=== PATIENT | female | born 1990 | race Hispanic/Latino ===

== ENCOUNTER 2021-05-21 20:10 | Emergency (ER) | payer MEDICAID, SELFPAY ==
--- NOTE | ~2021-05-21 | US_ITS ---
EXAMINATION: US OB <= 14 weeks fetus EXAM DATE: 05/21/2021 22:41 INDICATION: Pelvic pain, vaginal bleeding. 1st trimester. TECHNIQUE: Pelvic obstetrical transabdominal sonogram was performed by a technologist. There are mu ltiple grayscale and Doppler images available for interpretation. There are no earlier studies of th is gestation for comparison. FINDINGS: Uterus measures 11.3 x 8.5 x 10.0 cm. There is intrauterine gestation sac. pole wit h heart rate confirmed at 165 beats per minute. The 3.4 cm crown-rump length corresponds to estimate d gestational age by ultrasound of 10 weeks 2 days, estimated date of confinement 12/15. Yolk sac is identified. There is small subchorionic hypoechoic region probably hemorrhage measuring [address] by 4 mm in thickness. Left ovary probably has the corpus luteal cyst. Right ovary not identified . IMPRESSION: Live intrauterine gestation with small subchorionic hematoma. Reviewed, dictated and finalized at location A.
[2021-05-21 20:23] VITALS: BP 109/70; PULSE 81; RESP 20; TEMP 36.8; O2SAT 100
[2021-05-21 21:25] LABS: Basophils Percent Auto 0.2 % (0.2-1.2); Eosinophils Absolute Auto 0.1 K/mm3 (0-0.3); Eosinophils Percent Auto 0.7 % (0-4.4); Hematocrit 33.6 % (37.0-47.0); Immature Granulocyte Absolute 0.02 K/mm3 (0.00-0.031); Immature Granulocyte Percent A 0.2 % (0-0.5); Lymphocytes Absolute Auto 2.24 K/mm3 (0.9-3.2); Lymphocytes Percent Auto 24.5 % (18.3-44.2); Mean Corpuscular HGB Conc 32.7 g/dl (32-36); Mean Corpuscular Hemoglobin 27.9 pg (26-34); Mean Corpuscular Volume 85.3 fl (80-100); Mean Platelet Volume 9.9 fl (7.4-10.4); Monocytes Absolute Auto 0.4 K/mm3 (0.1-0.6); Monocytes Percent Auto 4.8 % (2.6-8.5); Neutrophils Absolute Auto 6.4 K/mm3 (1.3-6.7); Neutrophils Percent Auto 69.6 % (45.5-73.1); Platelet Count Result 305 k/mm3 (150-375); Red Blood Count 3.94 M/mm3 (4.2-5.4); Red Cell Distribution Width 14.1 % (11.5-14.5); White Blood Count 9.1 K/mm3 (4.5-10.0)
[2021-05-21 21:36] LABS: Alanine Aminotransferase 17 U/L (4-35); Albumin Level 3.5 g/dL (3.5-5.1); Alkaline Phosphatase 73 U/L (38-126); Anion Gap 5 mmol/L (8-16); Aspartate Amino Transferase 19 U/L (14-36); Bilirubin,Total 0.2 mg/dL (0.2-1.3); Blood Urea Nitrogen 7 mg/dL (7-17); Calcium 8.4 mg/dL (8.4-10.2); Carbon Dioxide 28 mmol/L (22-30); Chloride 104 mmol/L (98-107); Estimated CRCL calculation 116 ml/min; Estimated Glomerular Filt Rate > 60; Glucose 158 mg/dL (65-110); Potassium 3.8 mmol/L (3.4-5.0); Sodium 137 mmol/L (137-145)
[2021-05-21 21:52] LABS: Add Urine Microscopic? YES; Appearance Urine Cloudy (Clear); Bilirubin Urine Negative (Negative); Blood Urine Negative (Negative); Color Urine Yellow (Yellow); Glucose Urine UA 3+ mg/dL (Negative); Ketones Urine Negative (Negative); Leukocyte Esterase Ur 2+ LEU/UL (Negative); Mucus Urine Rare /lpf; Nitrate Urine Negative (Negative); Protein Urine Negative (Negative); Specific Grav Ur 1.015 (1.001-1.035); Squamous Epithelial Cell Urine Moderate /hpf (Few); WBC Urine 51-75 /hpf
[2021-05-21 22:56] VITALS: BP 102/65; PULSE 76; RESP 18; O2SAT 100
[2021-05-22 00:10] VITALS: BP 98/71; PULSE 72; RESP 18; O2SAT 100
--- NOTE | 2021-05-22 00:30 | ED.GENADULT ---
HPI - General Adult General Chief complaint: Vaginal Bleeding Stated complaint: 10 weeks 2 weeks of RLQ pain Time Seen by Provider: 05/21/21 20:24 History of Present Illness HPI narrative: Patient is a 30-year-old female who presents ER with vaginal bleeding. Occurred this evening. Associate with dysuria. Radiates to the right lower quadrant. Reports LMP of March 03. She is a G5, P4. She sees Dr. Lamar at [facility] in [facility]. She endorses vaginal discharge over the last month. Bleeding was small and dark. She has not filled up a pad. No fevers or chills or sweats. No chest pain or chest pressure. Related Data Allergies Allergy/AdvReac Type Severity Reaction Status Date / Time No Known Allergies Allergy Verified 05/21/21 22:35 Review of Systems Review of Systems: All systems reviewed & are unremarkable except as noted in HPI and below Constitutional: Constitutional: Denies chills, Denies fever(s) and Denies weakness ENT: Denies nasal congestion and Denies sore throat Cardiovascular: Cardiovascular: Denies chest pain, Denies rapid heart rate and Denies radiating jaw, neck or arm pain Respiratory: Respiratory: Denies cough and Denies dyspnea Gastrointestinal: Gastrointestinal: Reports abdominal pain, Denies diarrhea, Denies nausea and Denies vomiting Genitourinary: Genitourinary: Reports abnormal vaginal bleeding, Denies hematuria, Denies nocturia, Reports dysuria and Reports vaginal discharge PMFSH Past Medical History Medical History (Updated 05/22/21 @ 01:06 by Juan Montalvo MD) Healthy female adult Surgical History Surgical History (Updated 05/22/21 @ 01:06 by Juan Montalvo MD) No pertinent past surgical history Social History Social History (Updated 05/22/21 @ 01:06 by Juan Montalvo MD) Smoking status: Never smoker Exam Narrative: GENERAL: Well-appearing, well-nourished, and in no acute distress. HEAD: Normocephalic, atraumatic. CHEST: Clear to auscultation. No respiratory distress. HEART: Regular rate and rhythm. Normal peripheral pulses. ABDOMEN: Soft, nontender, nondistended. : Normal external genitalia. Cervix closed and nonfriable. No vaginal bleeding. Mild to moderate amount of vaginal discharge that is without foul odor. EXTREMITIES: Normal range of motion. No edema. SKIN: Warm, dry, no rash. NEURO: Alert and oriented x3. PSYCH: Normal mood and affect. Course Course Emergency Course: Discussed case with Dr. Thornton who is property utilization officer for Dr. Hernandez. May call for close f/u in increased bleeding/concern but can otherwise keep previously scheduled f/u. Patient has been educated regarding diagnosis and treatment plan. She is verbalized understanding. We will start her on some cephalexin for her UTI. She reports she has been evaluated for the vaginal discharge seen on exam by her OB. The vaginal discharge developed after having her transvaginal ultrasound for dating. He is told her that there is nothing to worry about. She reports that she is sexually active but only with 1 partner and does not feel like she is at risk for sexual transmitted infection. GC/chlamydia swabs obtained. Bleeding/return precautions given. Discharge home. Vital Signs Vital signs: Vital Signs Temperature 98.2 F 05/21/21 20:23 Pulse Rate 81 05/21/21 20:23 Respiratory Rate 20 05/21/21 20:23 Blood Pressure 109/70 05/21/21 20:23 Pulse Oximetry 100 05/21/21 20:23 Temperature 98.2 F 05/21/21 20:23 Pulse Rate 72 05/22/21 00:10 Respiratory Rate 18 05/22/21 00:10 Blood Pressure 98/71 L 05/22/21 00:10 Pulse Oximetry 100 05/22/21 00:10 Medical Decision Making Vital Signs Vital Signs: Vital Signs Temperature 98.2 F 05/21/21 20:23 Pulse Rate 81 05/21/21 20:23 Respiratory Rate 20 05/21/21 20:23 Blood Pressure 109/70 05/21/21 20:23 Pulse Oximetry 100 05/21/21 20:23 Temperature 98.2 F
[2021-05-22 01:14] VITALS: BP 102/65; PULSE 75; RESP 18; O2SAT 100
== END 2021-05-22 01:15 | disposition home or self-care (01) ==
PROVIDERS: Emergency Provider Emergency Medicine; PCP Family Medicine
DX: O46.8X1 Other antepartum hemorrhage, first trimester (principal); O23.41 Unspecified infection of urinary tract in pregnancy, first trimester; Z3A.10 10 weeks gestation of pregnancy
CPT/HCPCS: 36415; 76801; 80053; 81001; 84702; 85025; 85461; 87086; 87088; 87491; 87591; 87808; 99284

== ENCOUNTER 2021-06-20 18:33 | Emergency (ER) | payer MEDICAID, SELFPAY ==
[2021-06-20 18:35] VITALS: BP 116/75; PULSE 102; RESP 18; TEMP 36.6; O2SAT 100
[2021-06-20 19:01] LABS: Basophils Percent Auto 0.2 % (0.2-1.2); Eosinophils Percent Auto 0.3 % (0-4.4); Hematocrit 29.8 % (37.0-47.0); Hemoglobin 10.1 g/dL (12.0-15.0); Immature Granulocyte Absolute 0.05 K/mm3 (0.00-0.031); Immature Granulocyte Percent A 0.5 % (0-0.5); Lymphocytes Percent Auto 9.4 % (18.3-44.2); Mean Corpuscular HGB Conc 33.9 g/dl (32-36); Mean Corpuscular Hemoglobin 28.3 pg (26-34); Mean Corpuscular Volume 83.5 fl (80-100); Monocytes Absolute Auto 0.6 K/mm3 (0.1-0.6); Monocytes Percent Auto 6.3 % (2.6-8.5); Neutrophils Percent Auto 83.3 % (45.5-73.1); Platelet Count Result 273 k/mm3 (150-375); Red Blood Count 3.57 M/mm3 (4.2-5.4); Red Cell Distribution Width 13.2 % (11.5-14.5); White Blood Count 9.6 K/mm3 (4.5-10.0)
[2021-06-20 22:29] VITALS: BP 114/74; PULSE 74; RESP 16; O2SAT 99
--- NOTE | 2021-06-20 22:30 | ED.FEMALEGU ---
HPI - Female Genitourinary General Chief complaint: Vaginal Bleeding Stated complaint: IUP, Bleeding Time Seen by Provider: 06/20/21 21:26 History of Present Illness HPI Narrative: Patient is a 30-year-old female who is 14 weeks in who presents ER with vaginal bleeding. Has history of benign subchronic hemorrhage. Has been doing well until this afternoon when she started having bleeding. She has bled through 3 pads. The blood is dark and has some clots in it. No fevers chills or sweats. No urinary symptoms. No abdominal cramping. She is concerned about the baby's health. Blood type is O+. Related Data Allergies Allergy/AdvReac Type Severity Reaction Status Date / Time No Known Allergies Allergy Verified 06/20/21 18:39 Review of Systems Review of Systems: All systems reviewed & are unremarkable except as noted in HPI and below ENT: Denies nasal congestion and Denies sore throat Cardiovascular: Cardiovascular: Denies chest pain, Denies rapid heart rate and Denies radiating jaw, neck or arm pain Gastrointestinal: Gastrointestinal: Reports abdominal pain, Denies nausea and Denies vomiting Genitourinary: Genitourinary: Reports abnormal vaginal bleeding, Denies hematuria, Denies dysuria, Denies pelvic pain and Denies vaginal discharge PMFSH Past Medical History Medical History (Updated 06/20/21 @ 22:38 by Juan Montalvo MD) Healthy female adult Surgical History Surgical History (Updated 05/22/21 @ 01:06 by Juan Montalvo MD) No pertinent past surgical history Social History Social History (Updated 05/22/21 @ 01:06 by Juan Montalvo MD) Smoking status: Never smoker Exam Narrative: GENERAL: Well-appearing, well-nourished, and in no acute distress. HEAD: Normocephalic, atraumatic. CHEST: Clear to auscultation. No respiratory distress. HEART: Regular rate and rhythm. Normal peripheral pulses. ABDOMEN: Soft, nontender, nondistended. : Normal external genitalia. Speculum exam with cervix that is mildly open with mucus and dark blood present. No active hemorrhage. No parts identified as presenting. EXTREMITIES: Normal range of motion. No edema. SKIN: Warm, dry, no rash. NEURO: Alert and oriented x3. PSYCH: Normal mood and affect. Course Course Emergency Course: Bedside ultrasound shows heart tones and movement. Contacted Dr. Garcia who is oncall for pts OB Dr. Hernandez. Is taking her information and will contact her for follow-up tomorrow for repeat exam and formal ultrasound. Patient aware of diagnosis and treatment plan. Discharge home. Vital Signs Vital signs: Vital Signs Temperature 97.8 F 06/20/21 18:35 Pulse Rate 102 H 06/20/21 18:35 Respiratory Rate 18 06/20/21 18:35 Blood Pressure 116/75 06/20/21 18:35 Pulse Oximetry 100 06/20/21 18:35 Temperature 97.8 F 06/20/21 18:35 Pulse Rate 74 06/20/21 22:29 Respiratory Rate 16 06/20/21 22:29 Blood Pressure 114/74 06/20/21 22:29 Pulse Oximetry 99 06/20/21 22:29 MDM - Female Genitourinary Lab Data Result diagrams: 06/20/21 18:43 Labs: Lab Results 06/20/21 06/20/21 06/20/21 Range/Units 18:43 18:43 18:43 WBC 9.6 (4.5-10.0) K/mm3 RBC 3.57 L (4.2-5.4) M/mm3 Hgb 10.1 L (12.0-15.0) g/dL Hct 29.8 L (37.0-47.0) % MCV 83.5 (80-100) fl MCH 28.3 (26-34) pg MCHC 33.9 (32-36) g/dl RDW 13.2 (11.5-14.5) % Plt Count 273 (150-375) k/mm3 MPV 10.0 (7.4-10.4) fl Immature Gran % (Auto) 0.5 (0-0.5) % Neut % (Auto) 83.3 H (45.5-73.1) % Lymph % (Auto) 9.4 L (18.3-44.2) % Addison % (Auto) 6.3 (2.6-8.5) % Eos % (Auto) 0.3 (0-4.4) % Baso % (Auto) 0.2 (0.2-1.2) % Lymph # (Auto) 0.90 (0.9-3.2) K/mm3 Addison # (Auto) 0.6 (0.1-0.6) K/mm3 Eos # (Auto) 0.0 (0-0.3) K/mm3 Baso # (Auto) 0.0 (0.0-0.1) K/mm3 Abs Immat Gran (auto) 0.05 H (0.00-0.031) K/mm3 Absolute Neuts (auto) 8.0
[2021-06-20 23:52] VITALS: BP 110/74; PULSE 71; RESP 16; O2SAT 99
== END 2021-06-20 23:53 | disposition home or self-care (01) ==
LOC: ANHED 22:41
PROVIDERS: Physician Assistant; Emergency Provider Emergency Medicine; PCP Family Medicine
DX: O20.0 Threatened abortion (principal); O99.012 Anemia complicating pregnancy, second trimester; D64.9 Anemia, unspecified; Z3A.14 14 weeks gestation of pregnancy
CPT/HCPCS: 36415; 84702; 85025; 85461; 99284

== ENCOUNTER 2023-08-31 10:31 | Emergency (ER) | payer BC, SELFPAY ==
--- NOTE | ~2023-08-31 | XR_ITS ---
EXAMINATION: XR thoracic spine 3V DATE: 08/31/2023 13:47 INDICATION: Back pain TECHNIQUE: AP, lateral and lateral swimmer's views of the thoracic spine were obtained. COMPARISON: None. FINDINGS: No fracture, dislocation, or subluxation. The vertebral body heights, alignment, and interv ertebral disc spaces are normal. The paravertebral soft tissues are unremarkable. Thoracic levocurvat ure is noted. IMPRESSION: 1. No acute osseous abnormality. Reviewed, dictated and finalized at location B. 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
[2023-08-31 10:32] VITALS: BP 106/71; PULSE 73; RESP 18; TEMP 36.6; O2SAT 100
[2023-08-31 10:53] LABS: Glucose Point of Care 381 mg/dl (65-105)
[2023-08-31 12:27] LABS: Appearance Urine Clear (Clear); Bilirubin Urine Negative (Negative); Blood Urine Negative (Negative); Color Urine Yellow (Yellow); Glucose Urine UA 3+ mg/dL (Negative); Ketones Urine Negative (Negative); Leukocyte Esterase Ur Negative LEU/UL (Negative); Nitrate Urine Negative (Negative); Protein Urine Negative (Negative); Urobilinogen Urine 0.2 mg/dL (<2.0)
[2023-08-31 12:30] LABS: Basophils Percent Auto 0.1 % (0.2-1.2); Eosinophils Absolute Auto 0.1 K/mm3 (0-0.3); Eosinophils Percent Auto 1.8 % (0-4.4); Hematocrit 39.1 % (37.0-47.0); Hemoglobin 12.6 g/dL (12.0-15.0); Immature Granulocyte Absolute 0.01 K/mm3 (0.00-0.031); Immature Granulocyte Percent A 0.1 % (0-0.5); Lymphocytes Absolute Auto 1.97 K/mm3 (0.9-3.2); Lymphocytes Percent Auto 29.2 % (18.3-44.2); Mean Corpuscular HGB Conc 32.2 g/dl (32-36); Mean Corpuscular Hemoglobin 27.1 pg (26-34); Mean Corpuscular Volume 84.1 fl (80-100); Mean Platelet Volume 10.6 fl (7.4-10.4); Monocytes Absolute Auto 0.4 K/mm3 (0.1-0.6); Monocytes Percent Auto 5.2 % (2.6-8.5); Neutrophils Absolute Auto 4.3 K/mm3 (1.3-6.7); Neutrophils Percent Auto 63.6 % (45.5-73.1); Platelet Count Result 250 k/mm3 (150-375); Red Blood Count 4.65 M/mm3 (4.2-5.4); Red Cell Distribution Width 15.2 % (11.5-14.5); Specific Grav Ur 1.038 (1.001-1.035); White Blood Count 6.7 K/mm3 (4.5-10.0)
[2023-08-31 12:31] LABS: Add Urine Microscopic? YES
[2023-08-31 12:36] LABS: Alanine Aminotransferase 17 U/L (6-35); Albumin Level 4.2 g/dL (3.5-5.1); Alkaline Phosphatase 87 U/L (38-126); Anion Gap 10 mmol/L (8-16); Aspartate Amino Transferase 19 U/L (14-36); Bilirubin,Total 0.4 mg/dL (0.2-1.3); Blood Urea Nitrogen 5 mg/dL (7-17); Calcium 8.7 mg/dL (8.4-10.2); Carbon Dioxide 23 mmol/L (22-30); Chloride 102 mmol/L (98-107); Estimated CRCL calculation 121 ml/min; Estimated Glomerular Filt Rate > 60; Glucose 334 mg/dL (65-110); Phosphorus 3.2 mg/dL (2.5-4.5); Potassium 4.3 mmol/L (3.4-5.0); Sodium 135 mmol/L (137-145)
[2023-08-31] MEDS: ACETAMINOPHEN 500 MG TABLET 1000 MG PO (13:35)
[2023-08-31 13:38] LABS: Hemoglobin A1C 11.8 % (<5.7)
--- NOTE | 2023-08-31 14:32 | ED.RECABL ---
HPI - Recheck/Abnormal Lab/Rx General Chief Complaint: Recheck/Abnormal Lab/Rx Stated Complaint: Elv BS Time Seen by Provider: 08/31/23 12:44 Source: patient Mode of arrival: ambulatory Limitations: language barrier (using stratus interpreter for the deaf) History of Present Illness HPI narrative: This is a 32-year-old female that presents to the emergency department for elevated blood sugar. Reports her blood sugar was in the 400s at her PCPs office and they told her to come to the ER. She is really having any symptoms with this. She does not regularly check her blood sugar at home. She takes metformin and insulin for known history of diabetes. She does report the last couple of days she has had a achy right-sided midback pain. Worse with movement and relieved with rest. No recent injuries or trauma. Denies fevers, vomiting, dysuria, or hematuria. Related Data Allergies Allergy/AdvReac Type Severity Reaction Status Date / Time No Known Allergies Allergy Verified 06/20/21 18:39 Review of Systems Review of Systems: CONSTITUTIONAL: Denies fever GASTROINTESTINAL: Denies abdominal pain, nausea, vomiting GENITOURINARY: Denies dysuria or hematuria. SKIN: Denies rash MUSCULOSKELETAL: Reports back pain, and myalgia. NEUROLOGIC: Denies numbness, or weakness. All systems reviewed & are unremarkable except as noted in HPI and below PMFSH Past Medical History Medical History (Updated 08/31/23 @ 14:42 by America Flaherty PA-C) History of diabetes mellitus Surgical History Surgical History (Updated 05/22/21 @ 01:06 by Juan Montalvo MD) No pertinent past surgical history Social History Social History (Updated 05/22/21 @ 01:06 by Juan Montalvo MD) Smoking status: Never smoker Exam Narrative: GENERAL: Well-appearing, well-nourished, and in no acute distress. HEAD: Normocephalic, atraumatic. EYES: EOMI. ENT: Nares clear, no rhinorrhea or epistaxis. Mucous membranes moist. Oropharynx without tonsillar hypertrophy exudate or other lesions. CHEST: Clear to auscultation. No respiratory distress. No wheezes rales or rhonchi HEART: Regular rate and rhythm. No murmur heard. Normal peripheral pulses. ABDOMEN: Soft, nontender, nondistended, normal active bowel sounds. BACK: Tender to palpation of right thoracic paraspinal musculature EXTREMITIES: Normal range of motion. No edema. Strength equal in bilateral upper extremities (5/5) SKIN: Warm, dry, no rash. NEURO: No focal deficits. Alert and oriented x3. PSYCH: Normal mood and affect Course Course Emergency Course: Patient updated on her workup and agrees with plan of care Vital Signs Vital signs: Vital Signs Temperature 97.9 F 08/31/23 10:32 Pulse Rate 73 08/31/23 10:32 Respiratory Rate 18 08/31/23 10:32 Blood Pressure 106/71 08/31/23 10:32 Pulse Oximetry 100 08/31/23 10:32 Oxygen Delivery Room Air 08/31/23 10:32 Temperature 97.9 F 08/31/23 10:32 Pulse Rate 73 08/31/23 10:32 Respiratory Rate 18 08/31/23 10:32 Blood Pressure 106/71 08/31/23 10:32 Pulse Oximetry 100 08/31/23 10:32 Oxygen Delivery Room Air 08/31/23 10:32 MDM - Recheck/Abnormal Lab/Rx MDM Narrative Medical decision making narrative: Patient presents to the emergency department for elevated blood sugar reading at her PCP office. She is asymptomatic with this. Her vitals are stable. She is afebrile and nontoxic appearing. Metabolic panel with blood sugar of 334. She does not have an anion gap. Her bicarb is normal. No ketones in the urine. Beta hydroxybutyrate is negative. test is negative. Patient was also endorsing some right-sided mid back pain. No recent injuries. She is tender to palpation of the musculature. She is neurologically intact. Thoracic spine x-ray without acute osseous abnormalities. Patient was updated on her workup and agrees with plan of care. Instructed to have further follow-up with her primary provider
== END 2023-08-31 14:47 | disposition home or self-care (01) ==
PROVIDERS: Emergency Medicine; Emergency Provider Physician Assistant; PCP Family Medicine
DX: E11.65 Type 2 diabetes mellitus with hyperglycemia (principal); M54.6 Pain in thoracic spine; Z79.84 Long term (current) use of oral hypoglycemic drugs; Z79.4 Long term (current) use of insulin
CPT/HCPCS: 36415; 72072; 80053; 81001; 81025; 82010; 82948; 83036; 84100; 85025; 99283; A9270